=== PATIENT | male | born 1950 | race Caucasian/White ===

== ENCOUNTER → 2018-04-03 | Outpatient (CLI) | payer MEDICARE ==
[~2018-04-03] MED LIST: IOPAMIDOL 370 MG/ML 200 ML INFUS..BTL INJ ONE; SODIUM CHLORIDE 0.9% 100 ML 100 ML ONE
[2018-04-03 13:01] LABS: BLOOD UREA NITROGEN 16 mg/dL (7-26); BUN/CREATININE RATIO 17 (6-25); CREATININE, SERUM 0.92 mg/dL (0.72-1.25); EST GLOMERULAR FILTRATION RATE > 60 ML/MIN (60-)
--- NOTE | 2018-04-03 14:36 | Diagnostic Imaging Report ---
CTA NECK, CTA BRAIN HISTORY: Carotid stenosis COMPARISON: Report from CTA of the head/neck 04/21/2016 (images not available at time of dictation). TECHNIQUE: CTA of the head and neck was performed with intravenous iodine based contrast. Coronal, sagittal, and 3-D reformations were created. Noncontrast head CT was obtained as well. One or more of the following dose reduction techniques were used: Automated exposure control, adjustment of the mA and/or kV according to patient size, and/or utilization of iterative reconstruction technique. If present, any cervical carotid stenosis will be measured as a percentage relative to the [place] artery distal to the stenosis. 100 mL of Isovue-370 were administered. DISCUSSION: HEAD CT: There are no acute intracranial abnormalities. There is mild generalized cerebral volume loss. Mild periventricular white matter hypodensities are likely chronic microvascular ischemic changes. CERVICAL CTA: There are mild calcifications at the aortic arch. Right Carotid: Mild right carotid bulb calcified plaque without significant stenosis. Left Carotid: Mild to moderate left carotid bulb calcified plaque causes less than 50% focal stenosis in the proximal left internal carotid artery. Right vertebral artery: Patent, no abnormalities. Left vertebral artery: Patent, no abnormalities. INTRACRANIAL CTA: Carotid arteries: Mild bilateral carotid siphon calcifications are present without significant stenosis. No abnormalities in the A1 or M1 segments. Vertebrobasilar Circulation: Right vertebral artery: Mild calcification without significant stenosis. Left vertebral artery: Minimal calcification without significant stenosis. Basilar artery: Patent, no abnormalities. Posterior cerebral arteries: Patent, no abnormalities. Normal Variants: ACom: Patent. PComs: Not visualized. Vertebral arteries: Co-dominant. The major dural venous sinuses are grossly patent. Additional findings: Both ocular lenses appear thinned. There are mild to moderate degenerative changes throughout the spine. IMPRESSION: 1. Mild right and mild to moderate left carotid bulb calcified plaque without significant stenosis (less than 50%). 2. Mild bilateral carotid siphon calcification without significant stenosis. 3. Mild right and minimal left intradural vertebral artery calcification without significant stenosis. 4. No other cervical or intracranial CTA abnormalities. Signed by: Dr. Charly Baker M.D. on 04/03/2018 2:33 PM
== END ==
LOC: CT 12:06
PROVIDERS: ATTEND Psychiatry & Neurology Clinical Neurophysiology
DX: I65.22 Occlusion and stenosis of left carotid artery (principal)
CPT/HCPCS: 36415; 70496; 70498; 82565; 84520; Q9967